=== PATIENT | male | born 1970 | race Two or more races ===

== ENCOUNTER 2021-07-03 21:04 | Emergency (ER) | payer BC, OTHER ==
[~2021-07-03] VITALS: Ht 175.3 cm; Wt 115.7 kg
[2021-07-03 22:20] LABS: Basophils # (auto) 0.1 10 ^3/uL (0-0.2); Basophils % (auto) 0.6 % (0.0-2.0); Eosinophils # (auto) 0.3 10 ^3/uL (0-0.8); Hematocrit 45.2 % (41.0-53.0); Hemoglobin 15.9 g/dL (13.5-17.5); Lymphocytes # (auto) 2.2 10 ^3/uL (0.4-5.4); Lymphocytes % (auto) 25.7 % (10.0-50.0); Mean Corpuscular Hgb Conc. 35.1 g/dL (32.0-36.0); Mean Corpuscular Volume 88.1 fL (80.0-100.0); Monocytes # (auto) 0.9 10 ^3/uL (0-1.3); Monocytes % (auto) 10.8 % (0.0-12.0); Neutrophils % (auto) 58.9 % (37.0-80.0); Nucleated Red Blood Cells % 0.1 %; Red Blood Cells 5.12 10^6/uL (4.5-5.90); White Blood Cell 8.5 10^3/uL (4.4-10.8)
[2021-07-03 22:38] LABS: Chloride 97 mmol/L (98-107); Potassium 3.1 mmol/L (3.5-5.1); Sodium 134 mmol/L (136-145)
[2021-07-03 22:46] LABS: Alanine Aminotransferase 41 U/L (16-61); Albumin 3.5 g/dL (3.4-5.0); Alkaline Phosphatase 72 U/L (45-117); Anion Gap 11 (5-15); Aspartate Aminotransferase 23 U/L (15-37); BUN/Creatinine Ratio 11.6; Bilirubin, Total 0.6 mg/dL (0.2-1.0); Blood Urea Nitrogen 17 mg/dL (7-18); Calcium 8.5 mg/dL (8.5-10.1); Carbon Dioxide 26 mmol/L (21-32); GFR African American 65 mL/min; GFR Non-African American 54 mL/min; Glucose 254 mg/dL (74-106)
[2021-07-04 01:59] VITALS: BP 133/88
== END 2021-07-04 02:01 | disposition home or self-care (01) ==
LOC: ER 21:08
DX: R07.89 Other chest pain (principal); E11.9 Type 2 diabetes mellitus without complications; I10 Essential (primary) hypertension; F12.10 Cannabis abuse, uncomplicated
CPT/HCPCS: 36415; 71045; 80053; 83880; 84484; 85025; 93005

== ENCOUNTER → 2024-11-24 | Outpatient (CLI) | payer OTHER ==
[2024-11-24 10:21] LABS: Creatinine, Urine 139.83 mg/dL (30.0-125.0)
== END | disposition home or self-care (01) ==
LOC: LAB 07:25
PROVIDERS: ATTEND Internal Medicine
DX: E11.69 Type 2 diabetes mellitus with other specified complication (principal); N52.9 Male erectile dysfunction, unspecified
CPT/HCPCS: 36415; 82043; 82570; 83036; 84403

== ENCOUNTER 2025-02-20 12:08 | Outpatient (CLI) | payer OTHER | END 2025-02-20 17:00 | disposition home or self-care (01) | LOC: LAB 12:08 | PROVIDERS: ATTEND Family Medicine | DX: Z01.812 Encounter for preprocedural laboratory examination (principal); L72.3 Sebaceous cyst ==

== ENCOUNTER → 2025-03-13 | Outpatient (CLI) | payer OTHER | END | disposition home or self-care (01) | LOC: LAB 11:13 | PROVIDERS: ATTEND Family Medicine | DX: L72.3 Sebaceous cyst (principal) ==

== ENCOUNTER 2025-03-30 08:32 | Outpatient (CLI) | payer OTHER ==
[2025-03-30 09:38] LABS: Alanine Aminotransferase 37 U/L (7-40); Albumin 4.4 g/dL (3.2-4.8); Alkaline Phosphatase 68 U/L (46-116); Anion Gap 9 (5-15); BUN/Creatinine Ratio 11.4 (10.0-20.0); Blood Urea Nitrogen 9 mg/dL (9-23); Calcium 9.7 mg/dL (8.7-10.4); Carbon Dioxide 28 mmol/L (20-31); Chloride 104 mmol/L (98-107); Sodium 141 mmol/L (136-145); Total Protein 6.7 g/dL (5.7-8.2); Triglycerides 94 mg/dL (< 150)
[2025-03-30 09:39] LABS: Bilirubin, Total 1.0 mg/dL (0.2-1.0); Cholesterol 137 mg/dL (< 200); HDL Cholesterol 47 mg/dL (40-59)
[2025-03-30 09:46] LABS: Glucose 179 mg/dL (74-106); Potassium 3.4 mmol/L (3.5-5.1)
== END 2025-03-30 17:00 | disposition home or self-care (01) ==
LOC: LAB 08:32
PROVIDERS: ATTEND Internal Medicine
DX: E11.69 Type 2 diabetes mellitus with other specified complication (principal)
CPT/HCPCS: 36415; 80053; 80061; 83036

== ENCOUNTER → 2025-04-03 | Outpatient (CLI) | payer OTHER | END | disposition home or self-care (01) | LOC: LAB 11:22 | PROVIDERS: ATTEND Family Medicine | DX: L72.3 Sebaceous cyst (principal) ==

== ENCOUNTER 2025-05-11 09:11 | Outpatient (CLI) | payer OTHER ==
[2025-05-11 09:53] LABS: Chloride 102 mmol/L (98-107); Potassium 3.8 mmol/L (3.5-5.1); Sodium 139 mmol/L (136-145)
[2025-05-11 09:54] LABS: Anion Gap 10 (5-15); Calcium 9.2 mg/dL (8.7-10.4); Carbon Dioxide 27 mmol/L (20-31)
[2025-05-11 09:59] LABS: BUN/Creatinine Ratio 8.0 (10.0-20.0)
[2025-05-11 10:00] LABS: Blood Urea Nitrogen 7 mg/dL (9-23); Glucose 139 mg/dL (74-106)
== END 2025-05-11 17:00 | disposition home or self-care (01) ==
LOC: LAB 09:11
PROVIDERS: ATTEND Internal Medicine
DX: I10 Essential (primary) hypertension (principal); E11.29 Type 2 diabetes mellitus with other diabetic kidney complication; E87.6 Hypokalemia
CPT/HCPCS: 36415; 80048

== ENCOUNTER 2025-09-09 14:08 | Emergency (ER) | payer OTHER ==
[~2025-09-09] VITALS: Ht 175.3 cm; Wt 105.1 kg
[2025-09-09 14:11] VITALS: BP 157/105; PULSE 102; RESP 18; TEMP 97.9; O2SAT 95
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
[2025-09-09] MEDS: HYDROcodone-ACET 10/325MG TAB PO ONE (15:50)
== END 2025-09-09 15:46 | disposition left against medical advice (07) ==
LOC: ER 14:08
DX: S02.85XA Fracture of orbit, unspecified, initial encounter for closed fracture (principal); S02.2XXA Fracture of nasal bones, initial encounter for closed fracture; S02.80XA Fracture of other specified skull and facial bones, unspecified side, initial encounter for closed fracture; E11.9 Type 2 diabetes mellitus without complications; I10 Essential (primary) hypertension; Z90.49 Acquired absence of other specified parts of digestive tract; V86.55XA Driver of 3- or 4- wheeled all-terrain vehicle (ATV) injured in nontraffic accident, initial encounter; Y93.I9 Activity, other involving external motion; Y92.488 Other paved roadways as the place of occurrence of the external cause; Y99.8 Other external cause status
CPT/HCPCS: 70450; 70486